=== PATIENT | male | born 2000 | race Hispanic/Latino ===

== ENCOUNTER 2019-10-27 23:15 | Emergency (ER) | payer OTHER ==
[2019-10-28] MEDS ORDERED: Ondansetron ODT 4 MG TAB ONE (00:45)
== END 2019-10-28 01:00 | disposition home or self-care (01) ==
LOC: ERS 23:15
DX: B34.9 Viral infection, unspecified (principal)
CPT/HCPCS: 99283; Q0162

== ENCOUNTER 2021-06-14 08:14 | Inpatient (IN) | payer BC, OTHER, SELFPAY ==
[2021-06-14] MEDS ORDERED: Dexamethasone 10 MG/ML VIAL ONE (08:41)
[2021-06-14] MEDS ORDERED: Acetaminophen 500 MG TAB ONE (08:41)
[2021-06-14 08:55] LABS: #Lymphocytes 1.2 thou/uL (1.20-3.40); #Monocytes 0.6 thou/uL (0.11-0.59); #Neutrophils 5.7 thou/uL (1.40-6.50); %Basophils 0.6 % (0.0-1.0); %Eosinophils 0.3 % (0.0-10.0); %Lymphocytes 16.1 % (21.0-51.0); %Monocytes 8.4 % (0.0-10.0); %Neutrophils 74.7 % (42.0-75.0); Hemoglobin 16.5 g/dL (14.0-18.0); Mean Corpuscular HGB CONC 32.4 g/dL (32.0-36.0); Mean Corpuscular Hemoglobin 28.1 pg (27.0-31.0); Mean Corpuscular Volume 86.7 fL (78.0-98.0); Mean Platelet Volume 9.5 fL (7.4-10.4); Platelet Count 189 thou/uL (130-400); RBC Distribution Width 12.4 % (11.5-14.5); Red Blood Cell (RBC) Count 5.88 mill/uL (4.70-6.10); White Blood Cell (WBC) Count 7.6 thou/uL (4.8-10.8)
[2021-06-14 09:09] LABS: Acetaminophen Less than 6.0 mcg/mL (10.0-30.0); Alcohol Less than 10 mg/dL (Less than 10); Salicylate Less than 8.0 mg/dL (15.0-30.0)
[2021-06-14 09:11] LABS: ALT (SGPT) 29 U/L (8-55); AST (SGOT) 27 U/L (5-34); Albumin 3.9 g/dL (3.5-5.0); Alkaline Phosphatase 53 U/L (40-110); Anion Gap 11 mmol/L (10-20); BUN (Urea Nitrogen) 9 mg/dL (8.9-20.6); Bilirubin, Total 0.4 mg/dL (0.2-1.2); Calc. Creatinine Clearance 0 mL/min (70-130); Calcium 8.6 mg/dL (7.8-10.44); Carbon Dioxide 28 mmol/L (22-29); Chloride 102 mmol/L (98-107); Globulin 3.4 g/dL (2.4-3.5); Glucose 119 mg/dL (70-105); Potassium 3.9 mmol/L (3.5-5.1); Protein, Total 7.3 g/dL (6.0-8.3); Sodium 137 mmol/L (136-145)
[2021-06-14 09:24] LABS: Troponin I 0.012 ng/mL (< 0.028)
[2021-06-14] MEDS ORDERED: Iopamidol-370 76% 500 ML 1 ML ONE (09:47)
[2021-06-14] MEDS ORDERED: Ketorolac Tromethamine 30 MG/ML VIAL ONE (10:38)
[2021-06-14 11:06] LABS: Bilirubin Negative (Negative); Blood, Urine Negative (Negative); Clarity Clear (Clear); Glucose, Urine (Dipstick) Normal (Negative); Ketone, Urine Negative (Negative); Leukocyte Negative Leu/uL (Negative); Nitrite Negative (Negative); Protein, Urine (Dipstick) 10 mg/dL (Neg-Trace); Specific Gravity, Urine 1.041 (1.002-1.036); Urobilinogen Normal mg/dL (Less than 2)
[2021-06-14 11:15] LABS: Amphetamine Not Detected (NotDetected); Barbiturates Screen Not Detected (NotDetected); Benzodiazepine Screen Not Detected (NotDetected); Cocaine Metabolite Screen Not Detected (NotDetected); Methadone Not Detected (NotDetected); Methamphetamine Not Detected (NotDetected); Opiate Screen Not Detected (NotDetected); Oxycodone Screen Not Detected (NotDetected); Phencyclidine (PCP) Not Detected (NotDetected); THC/Cannabinoid Screen Not Detected (NotDetected); Tricyclic Screen Not Detected (NotDetected)
[2021-06-14] MEDS ORDERED: Calcium Carbonate 500 MG ChewTAB PO PRN (11:39)
[2021-06-14] MEDS ORDERED: Labetalol HCl 100 MG/20 ML VIAL SLOW IVP PRN (11:39)
[2021-06-14] MEDS ORDERED: Sodium Chloride 0.65% Nasal 44 ML BOT EA NARE PRN (11:39)
[2021-06-14] MEDS ORDERED: Guaifenesin DM 100-10/5 ML UDCUP PO PRN (11:39)
[2021-06-14] MEDS ORDERED: Bisacodyl 5 MG TAB PO PRN (11:39)
[2021-06-14] MEDS ORDERED: HYDROcodone/Acetaminophen 5/325 mg Tablet PO PRN (11:39)
[2021-06-14] MEDS ORDERED: Artificial Tear Sol 15 ML BOT EA EYE PRN (11:39)
[2021-06-14] MEDS ORDERED: Loratadine 10 MG TAB PO PRN (11:39)
[2021-06-14] MEDS ORDERED: Ondansetron PF 4 MG/2 ML Vial IVP PRN (11:39)
[2021-06-14] MEDS ORDERED: Bisacodyl 10 MG SUPP PR PRN (11:39)
[2021-06-14] MEDS ORDERED: Zolpidem Tartrate 5 MG TAB PO PRN (11:39)
[2021-06-14] MEDS ORDERED: Loperamide HCl 2 MG CAP PO PRN (11:39)
[2021-06-14] MEDS ORDERED: Ondansetron ODT 4 MG TAB PO PRN (11:39)
[2021-06-14] MEDS ORDERED: Hydrocerin (Eucerin) Cream 120 gm Jar TOP PRN (11:39)
[2021-06-14] MEDS ORDERED: Senokot S 8.6-50 MG TAB PO PRN (11:39)
[2021-06-14] MEDS ORDERED: Benzonatate 100 MG CAP PO PRN (11:39)
[2021-06-14] MEDS ORDERED: Cepastat Lozenges 1 LOZ PO PRN (11:45)
[2021-06-14] MEDS ORDERED: Albuterol 200 PUFF (6.7GM INHALER) INH PRN (12:22)
[2021-06-14] MEDS ORDERED: REMDESIVIR 200 MG in Sodium Chloride 0.9% 250 ML 210 ML IV SCH ×2 (13:15→18:15)
[2021-06-14 18:14] VITALS: BMI 35.2
[2021-06-15] MEDS: Acetaminophen 325 MG TAB PO PRN ×2 (05:22→07:29)
[2021-06-15 06:26] LABS: #Lymphocytes 1.2 thou/uL (1.20-3.40); #Monocytes 0.9 thou/uL (0.11-0.59); #Neutrophils 7.2 thou/uL (1.40-6.50); %Basophils 0.1 % (0.0-1.0); %Eosinophils 0.1 % (0.0-10.0); %Lymphocytes 13.2 % (21.0-51.0); %Monocytes 9.5 % (0.0-10.0); %Neutrophils 77.1 % (42.0-75.0); Hemoglobin 15.2 g/dL (14.0-18.0); Mean Corpuscular HGB CONC 32.5 g/dL (32.0-36.0); Mean Corpuscular Volume 86.2 fL (78.0-98.0); Mean Platelet Volume 8.9 fL (7.4-10.4); Platelet Count 195 thou/uL (130-400); RBC Distribution Width 12.5 % (11.5-14.5); Red Blood Cell (RBC) Count 5.43 mill/uL (4.70-6.10); White Blood Cell (WBC) Count 9.3 thou/uL (4.8-10.8)
[2021-06-15 06:46] LABS: ALT (SGPT) 21 U/L (8-55); AST (SGOT) 19 U/L (5-34); Albumin 3.6 g/dL (3.5-5.0); Alkaline Phosphatase 46 U/L (40-110); Anion Gap 11 mmol/L (10-20); BUN (Urea Nitrogen) 11 mg/dL (8.9-20.6); Bilirubin, Total 0.4 mg/dL (0.2-1.2); Calc. Creatinine Clearance 207 mL/min (70-130); Calcium 8.6 mg/dL (7.8-10.44); Carbon Dioxide 25 mmol/L (22-29); Chloride 105 mmol/L (98-107); Glucose 119 mg/dL (70-105); Magnesium 1.9 mg/dL (1.6-2.6); Phosphorus 3.4 mg/dL (2.3-4.7); Potassium 3.9 mmol/L (3.5-5.1); Protein, Total 6.6 g/dL (6.0-8.3); Sodium 137 mmol/L (136-145)
[2021-06-15] MEDS: Cholecalciferol 1,000 UNITS (25 MCG) TAB PO SCH (07:30)
[2021-06-15] MEDS: Zinc Sulfate 220 MG CAP PO SCH (07:30)
[2021-06-15] MEDS: Enoxaparin Sodium 40 MG/0.4 ML SYRINGE SC SCH (07:30)
[2021-06-15] MEDS: Ascorbic Acid 500 mg Chewable Tablet PO SCH (07:30)
[2021-06-15] MEDS: Dexamethasone 4 mg/ml Vial SLOW IVP SCH (07:31)
[2021-06-15] MEDS ORDERED: Vitamin E 400 UNITS CAP PO SCH (09:00)
[2021-06-15] MEDS: Fluticasone Propionate Nasal Spray 16 gm Bottle NASAL SCH (09:06)
[2021-06-15] MEDS: REMDESIVIR 100 MG in Sodium Chloride 0.9% 250 ML 230 ML IV SCH (13:12)
[2021-06-16 06:39] LABS: #Lymphocytes 1.3 thou/uL (1.20-3.40); #Monocytes 1.1 thou/uL (0.11-0.59); #Neutrophils 5.8 thou/uL (1.40-6.50); %Basophils 0.5 % (0.0-1.0); %Eosinophils 0.2 % (0.0-10.0); %Lymphocytes 16.1 % (21.0-51.0); %Monocytes 12.9 % (0.0-10.0); %Neutrophils 70.3 % (42.0-75.0); Mean Corpuscular HGB CONC 31.9 g/dL (32.0-36.0); Mean Corpuscular Hemoglobin 27.7 pg (27.0-31.0); Mean Corpuscular Volume 86.9 fL (78.0-98.0); Mean Platelet Volume 8.8 fL (7.4-10.4); Platelet Count 234 thou/uL (130-400); RBC Distribution Width 12.5 % (11.5-14.5); Red Blood Cell (RBC) Count 5.76 mill/uL (4.70-6.10); White Blood Cell (WBC) Count 8.3 thou/uL (4.8-10.8)
[2021-06-16 06:55] LABS: Anion Gap 10 mmol/L (10-20); BUN (Urea Nitrogen) 17 mg/dL (8.9-20.6); Calc. Creatinine Clearance 210 mL/min (70-130); Carbon Dioxide 29 mmol/L (22-29); Chloride 103 mmol/L (98-107); Glucose 114 mg/dL (70-105); Potassium 4.4 mmol/L (3.5-5.1); Sodium 138 mmol/L (136-145)
[2021-06-16] MEDS: Ascorbic Acid 500 mg Chewable Tablet PO SCH (07:55)
[2021-06-16] MEDS: Cholecalciferol 1,000 UNITS (25 MCG) TAB PO SCH (07:55)
[2021-06-16] MEDS: Zinc Sulfate 220 MG CAP PO SCH (07:55)
[2021-06-16] MEDS: Enoxaparin Sodium 40 MG/0.4 ML SYRINGE SC SCH (07:55)
[2021-06-16] MEDS: Dexamethasone 4 mg/ml Vial SLOW IVP SCH (07:56)
[2021-06-16] MEDS: Fluticasone Propionate Nasal Spray 16 gm Bottle NASAL SCH (08:09)
[2021-06-16] MEDS: REMDESIVIR 100 MG in Sodium Chloride 0.9% 250 ML 230 ML IV SCH (13:01)
[2021-06-17] MEDS: Cholecalciferol 1,000 UNITS (25 MCG) TAB PO SCH (08:03)
[2021-06-17] MEDS: Ascorbic Acid 500 mg Chewable Tablet PO SCH (08:03)
[2021-06-17] MEDS: Enoxaparin Sodium 40 MG/0.4 ML SYRINGE SC SCH (08:04)
[2021-06-17] MEDS: Fluticasone Propionate Nasal Spray 16 gm Bottle NASAL SCH (08:04)
[2021-06-17] MEDS: Dexamethasone 4 mg/ml Vial SLOW IVP SCH (08:04)
[2021-06-17] MEDS: Zinc Sulfate 220 MG CAP PO SCH (08:04)
[2021-06-17] MEDS: REMDESIVIR 100 MG in Sodium Chloride 0.9% 250 ML 230 ML IV SCH (13:27)
[2021-06-18 06:43] LABS: #Eosinphils 0.2 thou/uL (0.0-0.7); #Lymphocytes 2.6 thou/uL (1.20-3.40); %Basophils 0.4 % (0.0-1.0); %Eosinophils 1.9 % (0.0-10.0); %Lymphocytes 29.3 % (21.0-51.0); %Monocytes 11.5 % (0.0-10.0); %Neutrophils 56.8 % (42.0-75.0); Hemoglobin 16.3 g/dL (14.0-18.0); Mean Corpuscular HGB CONC 32.9 g/dL (32.0-36.0); Mean Corpuscular Hemoglobin 28.6 pg (27.0-31.0); Mean Corpuscular Volume 86.9 fL (78.0-98.0); Mean Platelet Volume 8.7 fL (7.4-10.4); Platelet Count 302 thou/uL (130-400); RBC Distribution Width 12.3 % (11.5-14.5); White Blood Cell (WBC) Count 8.9 thou/uL (4.8-10.8)
[2021-06-18 06:51] LABS: ALT (SGPT) 130 U/L (8-55); AST (SGOT) 47 U/L (5-34); Albumin 3.5 g/dL (3.5-5.0); Alkaline Phosphatase 55 U/L (40-110); Anion Gap 12 mmol/L (10-20); BUN (Urea Nitrogen) 19 mg/dL (8.9-20.6); Bilirubin, Total 0.4 mg/dL (0.2-1.2); Calc. Creatinine Clearance 178 mL/min (70-130); Calcium 8.9 mg/dL (7.8-10.44); Carbon Dioxide 25 mmol/L (22-29); Chloride 106 mmol/L (98-107); Globulin 3.2 g/dL (2.4-3.5); Glucose 104 mg/dL (70-105); Potassium 4.7 mmol/L (3.5-5.1); Protein, Total 6.7 g/dL (6.0-8.3); Sodium 138 mmol/L (136-145)
[2021-06-18] MEDS: Dexamethasone 4 mg/ml Vial SLOW IVP SCH (08:08)
[2021-06-18] MEDS: Ascorbic Acid 500 mg Chewable Tablet PO SCH (08:08)
[2021-06-18] MEDS: Cholecalciferol 1,000 UNITS (25 MCG) TAB PO SCH (08:08)
[2021-06-18] MEDS: Enoxaparin Sodium 40 MG/0.4 ML SYRINGE SC SCH (08:08)
[2021-06-18] MEDS: Zinc Sulfate 220 MG CAP PO SCH (08:08)
[2021-06-18] MEDS: Fluticasone Propionate Nasal Spray 16 gm Bottle NASAL SCH (08:34)
[2021-06-18] MEDS: REMDESIVIR 100 MG in Sodium Chloride 0.9% 250 ML 230 ML IV SCH (12:49)
[2021-06-18 15:13] VITALS: BP 125/75; TEMP 98.9
== END 2021-06-18 15:10 | disposition home or self-care (01) | DRG 871 ==
LOC: ERS 08:14 → ERHOLD 10:45 → T4-A 18:04
PROVIDERS: ADMIT Internal Medicine; ATTEND Internal Medicine
PROC: XW033E5 Introduction of Remdesivir Anti-infective into Peripheral Vein, Percutaneous Approach, New Technology Group 5 (ICD-10-PCS; principal; 2021-06-14)
PROC: 8E0ZXY6 Isolation (ICD-10-PCS; 2021-06-14)
DX: A41.89 Other specified sepsis (principal); U07.1 COVID-19; J12.82 Pneumonia due to coronavirus disease 2019; J96.01 Acute respiratory failure with hypoxia; R65.20 Severe sepsis without septic shock; E66.01 Morbid (severe) obesity due to excess calories; F12.11 Cannabis abuse, in remission; Z68.35 Body mass index [BMI] 35.0-35.9, adult; Z79.899 Other long term (current) drug therapy; Z98.890 Other specified postprocedural states
CPT/HCPCS: 36415; 71045; 71275; 80048; 80053; 80306; 80307; 81003; 82728; 83605; 83735; 84100; 84145; 84484; 85025; 85379; 86140; 87040; 93005; 96374; 96375; J1100; J1650; J1885; J7050; Q9967

== ENCOUNTER 2022-04-17 13:30 | Outpatient (CLI) | payer BC | END 2022-04-17 13:31 | disposition home or self-care (01) | LOC: BICMRI 13:30 | PROVIDERS: ATTEND Family Medicine | DX: R51.9 Headache, unspecified (principal) | CPT/HCPCS: 70553 ==